=== PATIENT | female | born 1990 | race Caucasian/White ===

== ENCOUNTER 2024-02-15 13:55 | Emergency (ER) | payer OTHER, SELFPAY ==
[2024-02-15 14:03] VITALS: BP 136/94; PULSE 108; O2SAT 98
[2024-02-15 14:05] VITALS: BP 150/98; PULSE 96; RESP 16; TEMP 36.9; O2SAT 98; BMI 36.6
--- NOTE | 2024-02-15 14:06 | ED_ITS ---
HPI - Nausea/Vomiting/Diarrhea General Chief complaint: Nausea/Vomiting/Diarrhea Stated complaint: VOMITING NAUSEA Time Seen by Provider: 02/15/24 19:20 Source: patient Mode of arrival: ambulatory Limitations: no limitations History of Present Illness ED Provider: gamaliel HPI Narrative: 33-year-old female with past medical history of diabetes and diabetic neuropathy on Trulicity presenting for nausea and vomiting. Patient states that she increased her Trulicity dose Monday night and shortly after she experienced nonbloody nonbilious emesis. Her symptoms persisted throughout Monday and into the day today. She endorses weakness and shortness of breath when vomiting however denies fevers, chest pain, abdominal pain, diarrhea, urinary symptoms MD elicited complaint: nausea and vomiting Related Data Previous Rx's ?Medication ?Instructions ?Recorded ondansetron 4 mg disintegrating 4 mg PO Q8H PRN nausea and 02/15/24 tablet vomiting #10 tabs Allergies Allergy/AdvReac Type Severity Reaction Status Date / Time No Known Allergies Allergy Verified 02/15/24 14:07 [No Known Allergies*] Review of Systems 2 Review of Systems: Patient endorses nausea, vomiting, weakness, shortness of breath Patient denies head pain, chest pain, fevers, abdominal pain, dysuria/hematuria, diarrhea Yes all other systems are reviewed and are negative [facility] Past Medical History Attestation statement: The following information was validated with the patient. [facility] Narrative: Diabetes and diabetic neuropathy Social History Social History Advance Directives: No Advance Directives Information Provided: No Physical Exam 2 Vital Signs: Vital Signs: Last Vital Signs Temp 98.9 F 02/15/24 20:27 Pulse 105 H 02/15/24 20:27 Resp 20 02/15/24 20:27 BP 156/102 H 02/15/24 20:27 Pulse Ox 96 02/15/24 20:27 O2 Del Method Room Air 02/15/24 20:27 BMI result Body Mass Index 36.6 Well-appearing obese female Moist mucous membranes Abdomen is soft nontender nondistended Normal S1-S2 regular rate rhythm Course Course Course Narrative: This is a Rapid Medical Examination (RME) performed by Mulugeta Land PA-C in triage. Full HPI, ROS, assessment and treatment plan per primary provider in the Main ED. 33 yo female hx DM w/ neuropathy here for eval of N/V since increasing her trulicty dosage two days ago. assoc chills. no documented fever. denies abd pain, flank pain, urinary symptoms. + abd soft, nd/nt. no cvat. Plan: labs, viral serology Reevaluation(s) Reevaluation #1: Labs ordered in triage. I evaluated patient; she states that she wants to leave. I told her I would look over her chart and come discuss her results Time: 20:10 Medications Administered Discontinued Medications Generic Name Dose Route Start Last Admin Trade Name Roseann PRN Reason Stop Dose Admin Ondansetron HCl 4 mg 02/15/24 18:52 02/15/24 18:56 Ondansetron Odt 4 Mg Tab.Rapdis TRANSLINGU 02/15/24 18:53 4 mg ONCE ONE Administration Medical Decision Making Medical Decision Making [facility] Narrative: Patient symptoms are most likely secondary to medication however I would also like to rule out pancreatitis and biliary causes as her LFTs are slightly elevated. Furthermore patient is tachycardic which is likely in the setting of vomiting and her being on depleted and I would like to give her IV fluids to ensure her tachycardia resolves and I can be less concerned for PE. I explained this to the patient however she does not want to wait for additional lab work or IV fluids. I explained the risks of not ruling out these causes and she clearly understands them and says that she will return tomorrow if she has to. Patient is tolerating p.o. intake and I sent a prescription for Zofran to her pharmacy Differential Diagnosis Differential Diagnoses: The differential diagnosis associated with the presentation includes Dehydration, nausea and vomiting secondary to medication, pancreatitis, biliary disease, gastroenteritis Considering PE given the tachycardia however less likely Lab Data [facility] Lab Attestation statement: I reviewed the patient's lab results. Elevated LFTs; 02/15/24 14:23 02/15/24 14:23 Labs: Lab Results 02/15/24 Range/Units 14:23 WBC 13.0 H (4.8-10.8) X10*3/uL RBC 5.34 (4.20-5.50) X10*6/uL Hgb 14.4 (12.0-16.0) g/dl Hct 43.2 (37.0-47.0) % MCV 80.9 (80.0-98.0) fL MCH 27.0 (27.0-33.0) pg MCHC 33.3 (31.0-35.0) g/dl RDW 13.2 (11.0-16.0) % Plt Count 403 H (160-400) X10*3/uL MPV 9.8 (9.4-12.3) fL Immature Gran % (Auto) 0.5 H (0.0-0.4) % Neut % (Auto) 79.7 H (45-73) % Lymph % (Auto) 14.9 L (20-40) % Archer % (Auto) 3.8 (2-11) % Eos % (Auto) 0.6 (0-4) % Baso % (Auto) 0.5 (0-2) % Lymph # (Auto) 1.9 (1.2-4.9) X10*3/uL Archer # (Auto) 0.5 (0.1-1.2) X10*3/uL Eos # (Auto) 0.1 (0.0-0.4) X10*3/uL Baso # (Auto) 0.1 (0.0-0.2) X10*3/uL Abs Immat Gran (auto) 0.06 H (0.00-0.03) X10*3/uL Absolute Neuts (auto) 10.4 H (2.0-8.3) x10*3/uL Absolute Nucleated RBC 0.000 (0.0-0.012) X10*3/uL Nucleated RBC % (auto) 0.0 (0.0-0.2) /100WBC Sodium 140 (135-145) mmol/L Potassium 4.0 (3.3-5.1) mmol/L Chloride 103 (96-108) mmol/L Carbon Dioxide 22 (22-29) mmol/L Anion Gap 19 (12-20) BUN 6 L (9-16) mg/dL Creatinine 0.87 (0.5-1.4) mg/dL Estim Creat Clear Calc 109.6 Estimated GFR > 60 Random Glucose 137 H (60-115) mg/dL Calcium 10.7 H (8.4-10.2) mg/dL Magnesium 2.0 (1.6-2.6) mg/dL Total Bilirubin 0.8 (0.0-1.0) mg/dL AST 51 H (5-31) U/L ALT 141 H (0-31) U/L Alkaline Phosphatase 63 (39-117) U/L Total Protein 9.2 H (6.5-8.0) g/dL Albumin 4.8 (3.5-5.0) g/dL Influenza Type A (PCR) NEGATIVE (Negative) Influenza Type B (PCR) NEGATIVE (Negative) RSV RNA Qual (PCR) NEGATIVE (Negative) SARS-CoV-2 RNA (RT-PCR) NEGATIVE (Negative) Discharge Plan Discharge Clinical Impression: Nausea & vomiting Patient Disposition: Home, Self-Care Additional Instructions: I would like to rule out pancreatitis and liver causes for your symptoms. You were also tachycardic which is likely in the setting of being slightly volume depleted however pulmonary embolism was lower on my list of differentials. I recommend returning for IV hydration and reassessment. Please take up here new medication use as instructed Prescriptions: New ondansetron 4 mg tablet,disintegrating 4 mg PO Q8H PRN (Reason: nausea and vomiting) Qty: 10 0RF Interventions: ED Discharge Assessment Last Done: 02/15/24 20:27 Discharge Date/Time: 02/15/24 20:27 Print Language: Danish
[2024-02-15 14:29] LABS: MANUAL DIFF FLAG NO
[2024-02-15 14:30] LABS: Basophils Absolute Auto 0.1 X10*3/uL (0.0-0.2); Basophils Percent Auto 0.5 % (0-2); Eosinophils Absolute Auto 0.1 X10*3/uL (0.0-0.4); Eosinophils Percent Auto 0.6 % (0-4); Hematocrit 43.2 % (37.0-47.0); Hemoglobin 14.4 g/dl (12.0-16.0); Imm Gran Abs Auto 0.06 X10*3/uL (0.00-0.03); Imm Gran Pct Auto 0.5 % (0.0-0.4); Lymphocytes Absolute Auto 1.9 X10*3/uL (1.2-4.9); Lymphocytes Percent Auto 14.9 % (20-40); Mean Corpuscular HGB Conc 33.3 g/dl (31.0-35.0); Mean Corpuscular Volume 80.9 fL (80.0-98.0); Mean Platelet Volume 9.8 fL (9.4-12.3); Monocytes Absolute Auto 0.5 X10*3/uL (0.1-1.2); Monocytes Percent Auto 3.8 % (2-11); Neutrophils Absolute Auto 10.4 x10*3/uL (2.0-8.3); Neutrophils Percent Auto 79.7 % (45-73); Platelet Count 403 X10*3/uL (160-400); Red Blood Count 5.34 X10*6/uL (4.20-5.50); Red Cell Distribution Width 13.2 % (11.0-16.0)
[2024-02-15 14:54] LABS: Alanine Aminotransferase 141 U/L (0-31); Albumin Level 4.8 g/dL (3.5-5.0); Alkaline Phosphatase 63 U/L (39-117); Anion Gap 19 (12-20); Aspartate Amino Transferase 51 U/L (5-31); Bilirubin Total 0.8 mg/dL (0.0-1.0); Blood Urea Nitrogen 6 mg/dL (9-16); Calcium 10.7 mg/dL (8.4-10.2); Carbon Dioxide 22 mmol/L (22-29); Chloride 103 mmol/L (96-108); Creatinine Clr Calc Pharmacy 109.6; Estimated Glomerular Filt Rate > 60; Glucose Random 137 mg/dL (60-115); Sodium 140 mmol/L (135-145); Total Protein 9.2 g/dL (6.5-8.0)
[2024-02-15 15:46] LABS: Influenza A PCR NEGATIVE (Negative); Influenza B PCR NEGATIVE (Negative); Resp Syncy Virus RNA Qual PCR NEGATIVE (Negative); SARS COV2 PCR INHOUSE NEGATIVE (Negative)
[2024-02-15 18:53] VITALS: BP 156/102; PULSE 105; RESP 20; TEMP 37.2; O2SAT 96
[2024-02-15] MEDS: Ondansetron ODT 4 MG TAB.RAPDIS TRANSLINGU (18:56)
[2024-02-15 20:27] VITALS: BP 156/102; PULSE 105; RESP 20; TEMP 37.2; O2SAT 96
== END 2024-02-15 20:27 | disposition home or self-care (01) ==
PROVIDERS: Physician Assistant Medical; Emergency Provider Student in an Organized Health Care Education/Training Program
DX: R11.2 Nausea with vomiting, unspecified (principal); Z03.818 Encounter for observation for suspected exposure to other biological agents ruled out; R00.0 Tachycardia, unspecified; R53.1 Weakness; R06.02 Shortness of breath; E11.9 Type 2 diabetes mellitus without complications; Z79.85 Long-term (current) use of injectable non-insulin antidiabetic drugs
CPT/HCPCS: 0241U; 80053; 83735; 85025; 99282; 99283

== ENCOUNTER 2025-01-22 09:55 | Outpatient (REF) | payer MEDICAID, SELFPAY ==
[2025-01-22 11:03] LABS: Hematocrit 39.1 % (37.0-47.0); Hemoglobin 12.7 g/dl (12.0-16.0); Mean Corpuscular HGB Conc 32.5 g/dl (31.0-35.0); Mean Corpuscular Hemoglobin 26.9 pg (27.0-33.0); Mean Corpuscular Volume 82.8 fL (80.0-98.0); NRBC Abs Auto 0.000 X10*3/uL (0.0-0.012); NRBC Pct Auto 0.0 /100WBC (0.0-0.2); Platelet Count 376 X10*3/uL (160-400); Red Blood Count 4.72 X10*6/uL (4.20-5.50); White Blood Count 11.0 X10*3/uL (4.8-10.8)
[2025-01-22 11:11] LABS: Hemoglobin A1C 123.5692 umol/L; Total Hemoglobin (HGBA1C) 3263.9232 umol/L
[2025-01-22 11:52] LABS: Alanine Aminotransferase 15 U/L (0-31); Albumin Level 4.5 g/dL (3.5-5.0); Alkaline Phosphatase 72 U/L (39-117); Anion Gap 11 (12-20); Aspartate Amino Transferase 21 U/L (5-31); Blood Urea Nitrogen 7 mg/dL (9-16); Calcium 9.2 mg/dL (8.4-10.2); Carbon Dioxide 29 mmol/L (22-29); Chloride 103 mmol/L (96-108); Cholesterol 245 mg/dL (<200); Estimated Glomerular Filt Rate > 60; HDL Cholesterol 53 mg/dL (>40); Potassium 4.1 mmol/L (3.3-5.1); Sodium 139 mmol/L (135-145); Total Protein 7.8 g/dL (6.5-8.0); Triglycerides 171 mg/dL (<150)
[2025-01-22 12:09] LABS: Microalbum/Creatinine Ratio Ur 6.8 ug/mg cr (<30)
[2025-01-22 12:16] LABS: Free T4 (Free Thyroxine) 0.85 ng/dL (0.71-1.85); Thyroid Stimulating Hormone 1.75 uIU/mL (0.32-4.0)
[2025-01-22 12:17] LABS: HBS Num1 > 1000.00 mIU/mL (0-7.99); HBc Num1 0.17 S/CO (0.00-0.79); HBsAGNum1 0.48 S/CO (0.00-0.99); HIV Num 1 0.05 S/CO (0.00-0.99); Hepatitis B Surface Antigen Negative (Negative); ~HepC Num1 0.19 S/CO (0.00-0.79); ~Hepatitis B Surface Antibody REACTIVE (Nonreactive); ~Hepatitis C Antibody Nonreactive (Nonreactive)
[2025-01-22 12:38] LABS: Folate 13.7 ng/mL (> or = 4.0); Vitamin B12 293 pg/mL (200-900)
[2025-01-24 04:09] LABS: ~Hepatitis A Antibody IgG 0.42 S/CO (0.00-0.99)
[2025-01-24 17:47] LABS: Prot Elec - Albumin 4.1 g/dL (3.8-4.8); Prot Elec - Alpha1 0.3 g/dL (0.2-0.3); Prot Elec - Alpha2 0.8 g/dL (0.5-0.9); Prot Elec - Beta 1 0.4 g/dL (0.4-0.6); Prot Elec - Beta 2 0.4 g/dL (0.2-0.5); Prot Elec - Gamma 1.3 g/dL (0.8-1.7); Prot Elec - Total Protein 7.4 g/dL (6.1-8.1)
[2025-01-25 08:24] LABS: TS Negative Control Passed; TS Panel A 2; TS Panel B 0; TS Positive Control Passed; TSpotTB Negative (Negative)
[2025-01-27 10:38] LABS: Anti Nuclear Antibody Screen NEGATIVE (NEGATIVE)
== END 2025-01-22 09:56 | disposition home or self-care (01) ==
LOC: HO.LAB 09:55
PROVIDERS: PCP Family Medicine; Visit Provider Family Medicine
DX: G62.9 Polyneuropathy, unspecified (principal); I10 Essential (primary) hypertension; F41.9 Anxiety disorder, unspecified; R61 Generalized hyperhidrosis; E66.9 Obesity, unspecified
CPT/HCPCS: 36415; 80048; 80061; 80076; 82043; 82306; 82570; 82607; 82746; 83036; 84165; 84439; 84443; 85027; 85652; 86038; 86431; 86481; 86592; 86704; 86706; 86708; 86803; 87340; 87389

== ENCOUNTER 2025-05-30 07:52 | Outpatient (AMB) | payer MEDICAID, SELFPAY ==
--- OUTSIDE RECORDS SUMMARY | 2025-05-30 07:55 | XMS_ITS | Encounter Summary ---
Author Organization [employer] Address [address] [place] [address] Care Team Providers Care Transfer Engineer Name Role Phone Sabina Herrera MD Primary Care Provider [phone]- [phone] Reason for Visit * Reason Comments Med Refill Encounter Details Date Type Department Care Team (Late st Contact Info) Description 05/20/2025 Refill [facility] [address] [place] [address] [phone] Maria M Whitaker DO [address] [place] [address] Social History Tobacco Use Types Packs/Day Years Used Date Smoking Tobacco: Never Smokeless Tobacco: Never Alcohol Use Standard Drinks/Week Comments Never 0 (1 standard drink = 0.6 oz pur e alcohol) Comments Unknown Sex and Gender Information Value Date Recorded Sex Assigned at Female 01/16/2025 1:53 PM EDT Legal Sex Female 1:04 PM EDT Gender Identity Female 01/16/2025 1:53 PM EDT Sexual Orientation Straight 01/16/2025 1: 53 PM EDT documented as of this encounter Plan of Treatment Upcoming Encounters Date Type Department Care Team (Late st Contact Info) Description 06/20/2025 9:30 AM EST Office Visit [facility] [address] [place] [address] Sabina Herrera MD [address] [place] [address] documented as of this encounter Visit Diagnoses Not on filedocumented in this encounter Care Teams Transfer Engineer Relationship Specialty Start Date End Date Sabina Herrera MD [address] [place] [phone] PCP - General Family Medicine 05/20/25 documented as of this encounter
--- OUTSIDE RECORDS SUMMARY | 2025-05-30 07:55 | XMS_ITS | Encounter Summary ---
Author Organization [employer] Address [address] [place] [address] [address] [place] [address] Care Team Providers Care Equipment Engineering Technician Name Role Phone Sabina Herrera MD Primary Care Provider [phone]- [phone] Reason for Visit * Reason Comments Med Refill Encounter Details Date Type Department Care Team (Late st Contact Info) Description 05/19/2025 Refill [facility] [address] [place] [phone] Maria M Whitaker DO [address] [place] [address] Social History Tobacco Use Types Packs/Day Years Used Date Smoking Tobacco: Never Smokeless Tobacco: Never Comments Unknown Sex and Gender Information Value [...] Description 06/20/2025 9:30 AM EST Office Visit [facility] [address] [place] [address] Sabina Herrera MD [address] [place] [address] documented as of this encounter Visit Diagnoses Not on filedocumented in this encounter Care Teams Equipment Engineering Technician Relationship Specialty Start Date End Date Sabina Herrera MD [address] [place] [address] PCP - General Family Medicine 05/20/25 documented as of this encounter
--- OUTSIDE RECORDS SUMMARY | 2025-05-30 07:55 | XMS_ITS | Clinical Summary ---
Author Organization [employer] Address [address] [place] [address] Care Team Providers Care Dispensing Audiologist Name Role Phone Sabina Herrera MD Primary Care Provider +1- [phone] Allergies No known active allergies Medications glycopyrrolate (Robinul) 1 MG tablet Take 4 tablets (4 mg) by mouth if needed each day (excessive sweating). 60 tablet 1 01/17/20 25 026 Active DULoxetine (Cymbalta) [address] capsuleIndication s:Recurrent major depressive disorder, in partial remission (CMS/HCC) Take 1 capsule (30 mg) by mouth 2 times daily. Do not crush or chew. 60 capsule 3 05/20/20 25 026 Active gabapentin (Neurontin) 800 MG tabletIndications :Peripheral polyneuropathy Take 1 tablet (800 mg) by mouth 3 times daily. 90 tablet 3 05/20/20 25 026 Active cholecalciferol (Vitamin D-3) 50 MCG (1999 UT) capsuleIndication s:Vitamin D deficiency Take 1 capsule (50 mcg) by mouth Once per day. 90 capsule 3 05/20/20 25 Active DULoxetine (Cymbalta) [address] capsule Take 1 capsule (30 mg) by mouth 2 times daily. Do not crush or chew. 60 capsule 3 01/17/20 25 025 Discontinued(Re order (will not trigger notification to Pharmacy)) gabapentin (Neurontin) 800 MG tablet Take 1 tablet (800 mg) by mouth 3 times daily. 90 tablet 3 01/17/20 25 11/11/2 025 Discontinued(Re order (will not trigger notification to Pharmacy)) Active Problems Problem Noted Date Diagnosed Date Recurrent major depressive disorder, in partial remission 05/20/2025 Assessment & Plan (05/20/2025 4:14 PM EST): Orders: DULoxetine (Cymbalta) [address] capsule; Take 1 capsule (30 mg) by mouth 2 times daily. Do not crush or chew. Dyslipidemia 05/20/2025 Assessment & Plan (05/20/2025 4:14 PM EST): Lab Results Component Value Date CHOL 245 (H) 01/22/2025 TRIG 171 (H) 01/22/2025 HDL 53 01/22/2025 LDLCHOLCAL 158 (H) 01/22/2025 -continue lifestyle modification -recheck in 3 months and consider medicaion Leukocytosis 05/20/2025 Assessment & Plan (05/20/2025 4:14 PM EST): Old records requested Peripheral neuropathy 01/16/2025 Assessment & Plan (05/20/2025 4:14 PM EST): Reports had previous work up. Will rquest records. Orders: gabapentin (Neurontin) 800 MG tablet; Take 1 tablet (800 mg) by mouth 3 times daily. Essential hypertension 01/16/2025 Chronic low back pain 01/16/2025 Hyperhidrosis 01/16/2025 Severe obesity (BMI 35.0-35.9 with comorbidity) (CMS/HCC) 01/16/2025 Assessment & Plan (05/20/2025 4:14 PM EST): Anxiety 01/16/2025 History of pre-eclampsia 01/16/2025 Prediabetes 01/16/2025 Encounters Date Type Department Care Team Description 05/20/2025 3:20 PM EST Office Visit [facility] [address] [place] [phone] Sabina Herrera MD Peripheral polyneuropathy (Primary Dx); Dietary counseling; Exercise counseling; Severe obesity (BMI 35.0-35.9 with comorbidity) (CMS/HCC) (HCC); Vitamin D deficiency; Recurrent major depressive disorder, in partial remission (CMS/HCC); Dyslipidemia; Leukocytosis, unspecified type; Tachycardia, unspecified 05/20/2025 Refill [facility] [address] [place] [address] Julianne Maria MDO kami 05/19/2025 Refill [facility] [address] [place] [address] Maria M Whitaker DO 03/12/2025 Population Health Risk Score [facility] () Department [address] [phone] Provider, Population Health Generic from Last 3 Months Family History Medical History Relation Name Comments Hypertension Father Diabetes type I Maternal Grandmother Diabetes type II Paternal Grandmother Relation Name Status Comments Father Maternal Grandmother Paternal Grandmother Social History Tobacco Use Types Packs/Day Years Used Date Smoking Tobacco: Never Smokeless Tobacco: Never Tobacco Cessation:Counseling Given: Not Answered Alcohol Use Standard Drinks/Week Comments Never 0 (1 standard drink = 0.6 oz pur e alcohol) Comments Unknown Intention Date Recorded No desire to become (finding) 1 07/20/2024 Sex and Gender Information Value Date Recorded Sex Assigned at Female 01/16/2025 1:53 PM EDT Legal Sex Female 1:04 PM EDT Gender Identity Female 01/16/2025 1:53 PM EDT Sexual Orientation Straight 01/16/2025 1: 53 PM EDT Last Filed Vital Signs Vital Sign Reading Time Taken Comments Blood Pressure 138/88 05/20/2025 3:45 PM EST Pulse 122 05/20/2025 3:24 PM EST Temperature 36.2 C (97.1 F) 05/20/2025 3:24 PM EST Respiratory Rate 24 05/20/2025 3:24 PM EST Oxygen Saturation 97% 05/20/2025 3:24 PM EST Inhaled Oxygen Concentration - - Weight 103 kg (227 lb 6.4 oz) 05/20/2025 3:24 PM EST Height 165.1 cm (5' 5 ) 05/20/2025 3:24 PM EST Body Mass Index 37.84 05/20/2025 3:24 PM EST Plan of Treatment Upcoming Encounters Date Type Department Care Team (Late st Contact Info) Description 06/20/2025 9:30 AM EST Office Visit [facility] [address] [place] [address] Sabina Herrera MD [address] [place] [address] Health Maintenance Due Date Last Done Comments Depression Screening 1992 SDOH Screening 1992 Disability Screening 1992 Alcohol/Substance Use Screening 2004 HPV Vaccines (1 - 3-dose series) 02/20/2007 DTaP/Tdap/Td Vaccines (1 - Tdap) 02/20/2011 Hepatitis B Vaccines (1 of 3 - 19+ 3-dose series) 02/20/2011 Pap Smear 02/20/2013 Cervical Cancer Screening 02/20/2022 HPV/Cotest 02/20/2022 COVID-19 Vaccine (1 - 2024-2 6 season) 2025 Influenza Vaccine (#1) 2025 Diabetes: Hemoglobin A1C 01/22/2026 01/22/2025 Family Planning (PISQ) 05/20/2026 05/20/2025 Tobacco Screening 05/20/2026 05/20/2025 Lipid Panel 01/22/2030 01/22/2025 Zoster Vaccines (1 of 2) 02/20/2042 RSV Patients and Pa tients Aged 60 years or older (1 - 1-dose 75+ series) 02/20/2067 HIV Screening Completed 01/22/2025 Hepatitis C Screening Completed 01/22/2025 HIB Vaccines Aged Out No longer eligi ble based on patient's age to complete this topic Hepatitis A Vaccines Aged Out No long er eligible based on patient's age to complete this topic IPV Vaccines Aged Out No longer eligi ble based on patient's age to complete this topic Meningococcal B Vaccine Aged Out No l onger eligible based on patient's age to complete this topic Meningococcal Vaccine Aged Out No deborah uriel eligible based on patient's age to complete this topic Pneumococcal Vaccine: Pediat rics (0 to 5 Years) and At-Risk Patients (6 to 49) Years Aged Out No longer eligi ble based on patient's age to complete this topic RSV under 20 months Aged Out No longe r eligible based on patient's age to complete this topic Rotavirus Vaccines Aged Out No longer eligible based on patient's age to complete this topic Procedures Procedure Name Priority Date/Time Associated Diagnosis Comments HEPATITIS C AB W/REFL TO HCV RNA, QN, PCR Routine 01/22/2025 10:30 AM EDT Essential hypertension Anxiety Peripheral polyneuropathy Hyperhidrosis Obesity (BMI 30-39.9) HIV 1/2 ANTIGEN/ANTIBODY, FOURTH GENERATION W/RFL Routine 01/22/2025 10:30 AM EDT Essential hypertension Anxiety Peripheral polyneuropathy Hyperhidrosis Obesity (BMI 30-39.9) HEMOGLOBIN A1C Routine 01/22/2025 10:30 AM EDT Essential hypertension Anxiety Peripheral polyneuropathy Hyperhidrosis Obesity (BMI 30-39.9) LIPID PANEL, STANDARD Routine 01/22/2025 10:30 AM EDT Essential hypertension Anxiety Peripheral polyneuropathy Hyperhidrosis Obesity (BMI 30-39.9) from Last 3 Months or Most Recently Relevant to Health Maintenance Results * Hepatitis C Antibody with Reflex to HCV, RNA, Quantitative, Real-Time PCR (01/22/2025 10:30 AM EDT) Hepatitis C Antibody Nonreactive Nonreactive [facility] Comment:Antibodies to HCV no t detected; does not exclude early acuteHCV infection. Blood Venous blood specimen / Unknown 01/22/2025 10:30 AM EDT 01/22/2025 10:30 AM EDT us Maria M Whitaker DO LAB BLOOD ORDERABLES Final R esult [facility] [address] [place] [phone] * HIV-1/2 Antigen and Antibodies, Fourth Generation, with Reflexes (01/22/2025 10:30 AM EDT) HIV AB/AG Nonreactive Nonreactive [facility] Comment:HIV-1 p24 Ag and/or HIV-1/HIV-2 Ab not detected.A test result that is nonreactive does not exclude thepossibility of exposure to or infection with HIV-1 and/orHIV-2. Nonreactive results in this assay for individualswith prior exposure to HIV-1 and/or HIV-2 may be due toantigen and antibody levels that are below the limit ofdetection of this assay.[facility] HIV Ag/Ab Combo assay result andsupplemental assay results should be interpreted inconjunction with the patient's clinical presentation,history and other laboratory results. If the results areinconsistent with clinical evidence, additional testing issuggested to confirm the result. Blood Venous blood specimen / Unknown 01/22/2025 10:30 AM EDT 01/22/2025 10:30 AM EDT Maria M Whitaker DO LAB BLOOD ORDERABLES Final R esult [facility] [address] [place] [phone] * Hemoglobin A1c (01/22/2025 10:30 AM EDT) Hemoglobin A1c 5.6 <6.0 % [facility] Comment:Hemoglobin A1C Refer ence Range Adults: 4.8 - 6.0 % Non diabetic: < 6.0 % Goal: < 7.0 %Additional Action Suggested: > 8.0 %Note: Hemoglobin A1c results are invalid for patients with abnormal amounts of HbF. Blood transfusions may impact the HbA1c concentration in the patient sample. Estimated Average Glucose 114 mg/dL [facility] Comment:eAG = Estimated ave rage glucose which is %A1C expressed asaverage glucose, using the formula of the [id number] Glucose study (ADAG), Diabetes Care, Vol.31,#8,Feb. 2007 Blood Venous blood specimen / Unknown 01/22/2025 10:30 AM EDT 01/22/2025 10:30 AM EDT us Maria M Whitaker DO LAB BLOOD ORDERABLES Final R esult [facility] [address] [place] [phone] * (ABNORMAL) Lipid Panel, Standard (01/22/2025 10:30 AM EDT) Triglycerides 171(H) <150 mg/dL [facility] Comment:Desirable Triglyceri de: less than 150 mg/dLBorderline High Triglyceride 150-199 mg/dLHigh Triglyceride: 200-499 mg/dLVery High Triglyceride: greater than or equal to 5OO mg/dL Cholesterol 245(H) <200 mg/dL [facility] Comment:Desirable Cholestero l: less than 200 mg/dLBorderline High Cholesterol: 200-239 mg/dLHigh Cholesterol: greater than 239 mg/dL LDL Cholesterol Calculated 158(H) <100 mg/dL [facility] Comment:Desirable LDL: less than 100 mg/dLNear Optimal/Above Optimal LDL: 110- 129 mg/dLBorderline High LDL: 130-159 mg/dLHigh LDL: 160-189 mg/dLVery High LDL: greater than or equal to 190 mg/dL HDL Cholesterol 53 >40 mg/dL [facility] Comment:Desirable HDL: great er than 40 mg/dL Note: This HDL assay may give artificially low results in patients with liver disease. Blood Venous blood specimen / Unknown 01/22/2025 10:30 AM EDT 01/22/2025 10:30 AM EDT us Maria M Whitaker DO LAB BLOOD ORDERABLES Final R esult [facility] [address] [place] [phone] from Last 3 Months or Most Recently Relevant to Health Maintenance Insurance [place] C[place] Care Teams Dispensing Audiologist Relationship Specialty Start Date End Date Roger MillsSabina payne MD [address] [place] [phone] PCP - General Family Medicine 05/20/25
--- NOTE | 2025-05-30 09:44 | MHC.OFFVISWM ---
VS Expanded 05/30/25 09:57 Height 5 ft 5 in Weight 224 lb 4 oz BMI 37.3 Body Fat % 46.5 Body Fat Mass 104.2 Fat Free Mass 120 Visceral Fat Rating 11 Body Water % 38.3 Body Water Mass 86 Basal Metabolic Rate/Score 1,718 Intake Visit Reasons: [employer] [facility] BMI 37.3 Allergies No Known Allergies (No Known Allergies*) Allergy (Verified 05/30/25 09:45) Medication List - Last Reconciled 05/30/25 by Napoleon Wynne MD duloxetine 30 mg PO BID gabapentin 800 mg PO TID HPI HPI [employer] MWL BMI 37.3: Details: Start time: 9.33am, End time: 10.18am ?I spent 40 minutes speaking with the patient on the phone plus an additional 5 minutes reviewing and updating records for a total of 45 minutes HPI Comments Details: Previous weight loss efforts: self diets and exercise Wakes up: 6.20am, Sleeps: 11pm Breakfast: skips Lunch: 12pm (tuna, oatmeal, fruits) Dinner: 6pm (rice, beans, chicken stew) Snacks: 4pm (chips) Exercise: has home treadmill (inclines and tracks calories) Beverages: Coffee: none, Tea: none, Soda: Regular Nila (1-2 cans), Juice: none, ETOH: none PFSH Medical History (Updated 05/30/25 @ 10:14 by Napoleon Wynne MD) Depression Neuropathy BMI 37.0-37.9, adult Obesity Surgical History (Updated 03/17/25 @ 11:08 by Melina Squires CMA) Hx of dilation and curettage Hx of hysterectomy Hx of section Family History (Updated 03/17/25 @ 10:24 by Melina Squires CMA) Mother Thyroid condition Father No problems noted. Son ADHD Son No problems noted. Social History (Updated 03/17/25 @ 10:23 by Melina Squires CMA) Alcohol intake: never Patient Tobacco Use Status: Never used Tobacco Telehealth Telehealth Telehealth Platform: Telephone Location of provider rendering services: practice address Location of patient: address on file Patient Identification confirmed using: Name, : Yes Telehealth method: voice only Patient verbally consented to treatment: Yes Patient verbally consented to billing insurance company: Yes Patient informed of any privacy concerns related to visit: Yes Minutes spent on Phone/Video with Pt.: 45 Assessment & Plan Assessment & Plan (1) Obesity: Code(s): E66.9 - Obesity, unspecified Category: Medical Qualifiers: Obesity type: due to excess calories Obesity classification: adult class 2 (BMI 35 - 39.9) Serious obesity comorbidity presence: without serious comorbidity Body mass index: BMI 37.0-37.9 Qualified Code(s): E66.812 - Obesity, class 2; E66.09 - Other obesity due to excess calories; Z68.37 - Body mass index [BMI] 37.0-37.9, adult Plan: It was a pleasure talking to you?today. This is the summary of what we discussed today: 1. As we discussed, based on your present BMI you are approximately 80lbs overweight. In my opinion, for any weight loss strategy to be successful should have a high probability to help you lose at least 70lbs out of 80lbs of the extra weight you carry. We discussed in detail the available therapeutic options: 1) our lifestyle intervention program that has an average weight loss of 10% in 3 months.?Some patients continue it for longer and have lost over 50lbs but this is not common. Our lifestyle program can be provided by me. I will provide you with a link to use the lizbeth if you choose to do so. We use protein shakes and protein bars to replace some of the meals of the day and cover your appetite better. We will decide together the exact combination. 2) Weight loss medications: these can be used in conjunction with our lifestyle program or you may choose to use them without following a lifestyle program from my program but your own. As we discussed, your insurance only the Phentermine pill. It is well tolerated and most common side effects include blood pressure elevation, dry mouth, difficulty sleeping and heart palpitations. If your blood pressure is persistently high, the insurance may authorize the injections. You can also self pay for the weight loss injections and the cost is $249 for the first month and $499 for any other month thereafter. These payments go to the drug company directly and not to us. As we discussed, this is not a intermediate solution, as most patients put all the weight back once they are off the medication. 3) We also discussed about the lap sleeve gastrectomy. In my opinion this is the best option to solve your problem based on your situation and should be used in conjunction with the two previous options. A good strategy to make this decision to proceed with surgery, as soon as you achieve a specific goal with the lifestyle intervention and medication options: to lose least 10% of your initial weight in 3 months. ?I emphasized the importance of close follow-up, adherence to instructions and good communication. The surgery does not replace the need to change your lifestlyle which is the cause of the obesity problem. The surgery provides the motivation to try again to change your lifestyle, it reduces the appetite and make the transition to a better lifestyle easier and doubles the amount of weight you would lose compared to doing the lifestyle change without the surgery. You will need to be on a liquid diet with protein shakes for 2 weeks before surgery to maximize weight loss and boost your nutritional status to recover better from surgery and also for the first two weeks after surgery to let the stomach heal before we introduce other foods. After the first 2 weeks we will introduce protein bars and soft foods like scrambled eggs, cottage cheese and yogurt and after the 6th week will introduce meat, fish and cooked vegetables in small amounts. Over time you should be able to eat everything in small amounts. Side effects like nausea, vomiting, heartburn or abdominal pain are not common in the practice unless you are not following in the practice. This operation requires lifetime commitment to following in our practice and communication with me. You will much less weight and experience side effects if you don?t communicate or not following in the practice. Complications are rare and in our practice is about 1/10 of the national average.
[2025-05-30 09:57] VITALS: BMI 37.3
== END 2025-05-30 10:19 | disposition home or self-care (01) ==
LOC: HO.HBS 07:52
PROVIDERS: Visit Provider Surgery
DX: E66.812 Obesity, class 2 (principal); Z68.37 Body mass index [BMI] 37.0-37.9, adult
CPT/HCPCS: 99204